=== PATIENT | female | born 1955 | race Two or more races ===

== ENCOUNTER 2021-11-03 12:51 | Inpatient (IN) | payer BC, OTHER ==
[~2021-11-03] VITALS: Ht 134.6 cm; Wt 42.3 kg
[2021-11-03 14:15] LABS: Basophils # (auto) 0.1 10 ^3/uL (0-0.2); Basophils % (auto) 0.6 % (0.0-2.0); Eosinophils # (auto) 0 10 ^3/uL (0-0.8); Eosinophils % (auto) 0.2 % (0.0-7.0); Hematocrit 42.8 % (36.0-46.0); Hemoglobin 14.5 g/dL (12.2-16.2); Lymphocytes # (auto) 1.2 10 ^3/uL (0.4-5.4); Mean Corpuscular Hgb Conc. 33.8 g/dL (32.0-36.0); Mean Corpuscular Volume 85.8 fL (80.0-100.0); Monocytes # (auto) 0.7 10 ^3/uL (0-1.3); Monocytes % (auto) 4.7 % (0.0-12.0); Neutrophils % (auto) 86.5 % (37.0-80.0); Nucleated Red Blood Cells % 0.1 %; Red Blood Cells 4.99 10^6/uL (4.0-5.20); Red Cell Distribution Width 14.3 % (11.8-14.3)
[2021-11-03 14:32] LABS: INR 0.99 (0.9-1.15); Partial Thromboplastin Time 26.6 sec (23.6-33.0)
[2021-11-03 14:41] LABS: Albumin 3.8 g/dL (3.4-5.0); Calcium 9.8 mg/dL (8.5-10.1); Potassium 3.8 mmol/L (3.5-5.1)
[2021-11-03 14:45] LABS: BUN/Creatinine Ratio 23.8; Bilirubin, Total 0.5 mg/dL (0.2-1.0); Total Protein 7.4 g/dL (6.4-8.2)
[2021-11-03] MEDS ORDERED: metroNIDAZOLE 500MG/100ML 100 ML IV ONE (15:30)
[2021-11-03] MEDS ORDERED: ONDANSETRON HCL 4 MG/2 ML VIAL IV ONE (16:00)
[2021-11-03] MEDS ORDERED: MORPHINE SULFATE INJECTION 2 MG/ML SYRG IV ONE (16:00)
[2021-11-03] MEDS ORDERED: DEXTROSE (50%) 50ML SYRG IV PRN (20:45)
[2021-11-03] MEDS ORDERED: cefTRIAXone 1GM/50ML D5W 50 ML IV ONE (20:45)
[2021-11-03] MEDS ORDERED: ACETAMINOPHEN 325 MG TAB PO PRN (20:45)
[2021-11-03] MEDS ORDERED: TEMAZEPAM 15 MG CAP PO PRN (20:45)
[2021-11-03 22:07] VITALS: BP 126/84
[2021-11-03] MEDS: metroNIDAZOLE 500MG/100ML 100 ML IV SCH (22:32)
[2021-11-03] MEDS: HYDROcodone-ACET 5/325MG TAB PO PRN (22:33)
[2021-11-03] MEDS: ONDANSETRON HCL 4 MG/2 ML VIAL IV PRN (22:33)
[2021-11-03] MEDS: ATORVASTATIN 20 MG TAB PO SCH (22:33)
[2021-11-03] MEDS ORDERED: SITA100T7 PO (23:32)
[2021-11-03] MEDS ORDERED: INSU70IN3 SC (23:32)
[2021-11-03] MEDS ORDERED: FLUC100T34 PO (23:32)
[2021-11-03] MEDS ORDERED: ATOR40TA52 PO (23:32)
[2021-11-03] MEDS ORDERED: PANT40T PO (23:32)
[2021-11-03] MEDS ORDERED: GLIP10TA9 PO (23:32)
[2021-11-03] MEDS: ACCU-CHEK COMFORT CURVE STRIP VI SCH (23:44)
[2021-11-03] MEDS: InsuLIN REG 1unit/0.01ml Soln (100units/ml) SC SCH (23:44)
[2021-11-04 05:00] VITALS: BP 110/40
[2021-11-04] MEDS: ACCU-CHEK COMFORT CURVE STRIP VI SCH ×3 (05:08→17:02)
[2021-11-04] MEDS: InsuLIN REG 1unit/0.01ml Soln (100units/ml) SC SCH ×3 (05:08→17:02)
[2021-11-04] MEDS: metroNIDAZOLE 500MG/100ML 100 ML IV SCH ×3 (05:10→21:16)
[2021-11-04] MEDS: ONDANSETRON HCL 4 MG/2 ML VIAL IV PRN ×2 (05:24→21:14)
[2021-11-04] MEDS: HYDROcodone-ACET 5/325MG TAB PO PRN ×2 (05:24→21:15)
[2021-11-04 05:47] LABS: Basophils # (auto) 0.1 10 ^3/uL (0-0.2); Basophils % (auto) 0.8 % (0.0-2.0); Eosinophils # (auto) 0.1 10 ^3/uL (0-0.8); Eosinophils % (auto) 1.4 % (0.0-7.0); Hematocrit 38.7 % (36.0-46.0); Hemoglobin 13.3 g/dL (12.2-16.2); Lymphocytes # (auto) 1.7 10 ^3/uL (0.4-5.4); Lymphocytes % (auto) 17.7 % (10.0-50.0); Mean Corpuscular Hemoglobin 29.5 pg (28.0-32.0); Mean Corpuscular Hgb Conc. 34.4 g/dL (32.0-36.0); Mean Corpuscular Volume 85.6 fL (80.0-100.0); Monocytes # (auto) 0.6 10 ^3/uL (0-1.3); Monocytes % (auto) 6.6 % (0.0-12.0); Neutrophils # (auto) 7.2 10 ^3/uL (1.6-8.6); Neutrophils % (auto) 73.5 % (37.0-80.0); Red Blood Cells 4.52 10^6/uL (4.0-5.20); Red Cell Distribution Width 14.7 % (11.8-14.3); White Blood Cell 9.8 10^3/uL (4.4-10.8)
[2021-11-04 06:02] LABS: Albumin 3.1 g/dL (3.4-5.0); Calcium 8.8 mg/dL (8.5-10.1); Potassium 3.6 mmol/L (3.5-5.1)
[2021-11-04 06:06] LABS: BUN/Creatinine Ratio 27.8; Bilirubin, Total 0.6 mg/dL (0.2-1.0); Total Protein 6.2 g/dL (6.4-8.2)
[2021-11-04 09:00] VITALS: BP 95/44
[2021-11-04] MEDS: cefTRIAXone 1GM/50ML D5W 50 ML IV SCH (10:09)
[2021-11-04] MEDS: PANTOPRAZOLE 40 MG TAB PO SCH (10:09)
[2021-11-04 13:00] VITALS: BP 123/43
[2021-11-04 17:00] VITALS: BP 125/48
[2021-11-04] MEDS ORDERED: METR500T PO (18:13)
[2021-11-04] MEDS ORDERED: LEVO500T31 PO (18:13)
[2021-11-04] MEDS: ATORVASTATIN 20 MG TAB PO SCH (21:13)
[2021-11-04] MEDS: NYSTATIN (MOUTH-THROAT) 500,000 UNITS/5 ML SUSP MT SCH (21:16)
[2021-11-04 22:00] VITALS: BP 123/55
[2021-11-05] MEDS: ACCU-CHEK COMFORT CURVE STRIP VI SCH ×4 (00:19→17:22)
[2021-11-05] MEDS: InsuLIN REG 1unit/0.01ml Soln (100units/ml) SC SCH ×4 (00:19→17:22)
[2021-11-05 05:00] VITALS: BP 136/54
[2021-11-05] MEDS: metroNIDAZOLE 500MG/100ML 100 ML IV SCH ×2 (06:02→14:00)
[2021-11-05] MEDS: NYSTATIN (MOUTH-THROAT) 500,000 UNITS/5 ML SUSP MT SCH ×3 (06:03→17:22)
[2021-11-05] MEDS: ONDANSETRON HCL 4 MG/2 ML VIAL IV PRN ×2 (06:03→10:02)
[2021-11-05] MEDS: HYDROcodone-ACET 5/325MG TAB PO PRN (06:03)
[2021-11-05 09:00] VITALS: BP 116/36
[2021-11-05] MEDS: PANTOPRAZOLE 40 MG TAB PO SCH (10:02)
[2021-11-05] MEDS: cefTRIAXone 1GM/50ML D5W 50 ML IV SCH (10:02)
[2021-11-05 13:00] VITALS: BP 137/54
[2021-11-05 15:13] VITALS: BP 137/54
[2021-11-05 17:00] VITALS: BP 135/69
== END 2021-11-05 19:05 | disposition home health service (06) | DRG 392 ==
LOC: ER 12:51 → OVERFLOW 20:43 → WEST WING 22:10
PROVIDERS: ADMIT Nurse Practitioner; ATTEND Internal Medicine
DX: K57.32 Diverticulitis of large intestine without perforation or abscess without bleeding (principal); B37.81 Candidal esophagitis; E11.9 Type 2 diabetes mellitus without complications; K21.9 Gastro-esophageal reflux disease without esophagitis; E78.5 Hyperlipidemia, unspecified; Z20.822 Contact with and (suspected) exposure to COVID-19; K76.0 Fatty (change of) liver, not elsewhere classified; Z88.2 Allergy status to sulfonamides; Z90.710 Acquired absence of both cervix and uterus; Z79.84 Long term (current) use of oral hypoglycemic drugs
CPT/HCPCS: 36415; 74176; 80053; 82150; 82962; 83690; 85025; 85610; 85730; 96365; 96368; G0378; J0696; J1815; J2405; J3490